=== PATIENT | male | born 1970 | race Two or more races ===

== ENCOUNTER → 2020-04-20 | Outpatient (CLI) | payer OTHER ==
[2020-04-20 12:03] LABS: Basophils # (auto) 0 10 ^3/uL (0-0.2); Basophils % (auto) 0.3 % (0.0-2.0); Eosinophils # (auto) 0.2 10 ^3/uL (0-0.8); Eosinophils % (auto) 4.1 % (0.0-7.0); Hematocrit 45.3 % (41.0-53.0); Hemoglobin 15.5 g/dL (13.5-17.5); Lymphocytes # (auto) 1.8 10 ^3/uL (0.4-5.4); Lymphocytes % (auto) 30.8 % (10.0-50.0); Mean Corpuscular Hemoglobin 30.1 pg (28.0-32.0); Mean Corpuscular Hgb Conc. 34.2 g/dL (32.0-36.0); Mean Corpuscular Volume 88.1 fL (80.0-100.0); Monocytes # (auto) 0.5 10 ^3/uL (0-1.3); Neutrophils # (auto) 3.4 10 ^3/uL (1.6-8.6); Neutrophils % (auto) 56.8 % (37.0-80.0); Nucleated Red Blood Cells % 0.1 %; Platelet Count (auto) 190 10^3/uL (140-450); Red Blood Cells 5.14 10^6/uL (4.5-5.90); Red Cell Distribution Width 13.1 % (11.8-14.3)
[2020-04-20 12:22] LABS: Potassium 3.7 mmol/L (3.5-5.1)
[2020-04-20 12:32] LABS: Albumin 3.8 g/dL (3.4-5.0); BUN/Creatinine Ratio 11.8; Bilirubin, Total 0.5 mg/dL (0.2-1.0); Calcium 9.3 mg/dL (8.5-10.1); Total Protein 7.3 g/dL (6.4-8.2)
== END | disposition home or self-care (01) ==
LOC: LAB 11:14
PROVIDERS: ATTEND Physician Assistant
DX: Z00.00 Encounter for general adult medical examination without abnormal findings (principal); I10 Essential (primary) hypertension; G47.00 Insomnia, unspecified
CPT/HCPCS: 36415; 80053; 80061; 85025

== ENCOUNTER → 2021-07-26 | Outpatient (CLI) | payer OTHER ==
[2021-07-26 10:42] LABS: Basophils # (auto) 0 10 ^3/uL (0-0.2); Basophils % (auto) 0.4 % (0.0-2.0); Eosinophils # (auto) 0.2 10 ^3/uL (0-0.8); Eosinophils % (auto) 3.7 % (0.0-7.0); Hematocrit 45.4 % (41.0-53.0); Hemoglobin 15.6 g/dL (13.5-17.5); Lymphocytes # (auto) 1.8 10 ^3/uL (0.4-5.4); Lymphocytes % (auto) 28.9 % (10.0-50.0); Mean Corpuscular Hemoglobin 29.8 pg (28.0-32.0); Mean Corpuscular Hgb Conc. 34.4 g/dL (32.0-36.0); Mean Corpuscular Volume 86.7 fL (80.0-100.0); Monocytes # (auto) 0.5 10 ^3/uL (0-1.3); Monocytes % (auto) 7.5 % (0.0-12.0); Neutrophils # (auto) 3.8 10 ^3/uL (1.6-8.6); Neutrophils % (auto) 59.5 % (37.0-80.0); Nucleated Red Blood Cells % 0.2 %; Red Blood Cells 5.23 10^6/uL (4.5-5.90); Red Cell Distribution Width 13.3 % (11.8-14.3); White Blood Cell 6.3 10^3/uL (4.4-10.8)
[2021-07-26 12:35] LABS: Potassium 4.1 mmol/L (3.5-5.1)
[2021-07-26 12:51] LABS: Albumin 4.2 g/dL (3.4-5.0); BUN/Creatinine Ratio 12.8; Bilirubin, Total 0.6 mg/dL (0.2-1.0); Calcium 9.5 mg/dL (8.5-10.1); Total Protein 7.9 g/dL (6.4-8.2)
== END | disposition home or self-care (01) ==
LOC: LAB 10:25
PROVIDERS: ATTEND Nurse Practitioner Family
DX: Z00.00 Encounter for general adult medical examination without abnormal findings (principal); R73.9 Hyperglycemia, unspecified; E78.1 Pure hyperglyceridemia; I10 Essential (primary) hypertension
CPT/HCPCS: 36415; 80053; 80061; 82043; 83036; 85025

== ENCOUNTER → 2024-04-15 | Outpatient (CLI) | payer OTHER ==
[2024-04-15 10:13] LABS: Urine Bacteria None Seen /hpf (None Seen)
[2024-04-15 11:07] LABS: Alanine Aminotransferase 48 U/L (7-40); Albumin 4.5 g/dL (3.2-4.8); Alkaline Phosphatase 107 U/L (46-116); Anion Gap 6 (5-15); Aspartate Aminotransferase 22 U/L (13-40); BUN/Creatinine Ratio 8.1 (10.0-20.0); Bilirubin, Total 0.4 mg/dL (0.2-1.0); Blood Urea Nitrogen 10 mg/dL (9-23); Calcium 9.7 mg/dL (8.7-10.4); Carbon Dioxide 28 mmol/L (20-31); Chloride 110 mmol/L (98-107); Cholesterol 137 mg/dL (< 200); Glucose 112 mg/dL (74-106); HDL Cholesterol 32 mg/dL (40-59); LDL Cholesterol 90 mg/dL (< 100); Potassium 4.1 mmol/L (3.5-5.1); Sodium 144 mmol/L (136-145); Total Protein 7.2 g/dL (5.7-8.2); Triglycerides 123 mg/dL (< 150)
[2024-04-15 11:21] LABS: Basophils # (auto) 0 10 ^3/uL (0-0.2); Basophils % (auto) 0.6 % (0.0-2.0); Eosinophils # (auto) 0.4 10 ^3/uL (0-0.8); Eosinophils % (auto) 6.6 % (0.0-7.0); Hematocrit 45.8 % (41.0-53.0); Hemoglobin 15.7 g/dL (13.5-17.5); Lymphocytes # (auto) 1.8 10 ^3/uL (0.4-5.4); Lymphocytes % (auto) 29.6 % (10.0-50.0); Mean Corpuscular Hemoglobin 30.5 pg (28.0-32.0); Mean Corpuscular Hgb Conc. 34.3 g/dL (32.0-36.0); Mean Corpuscular Volume 88.9 fL (80.0-100.0); Monocytes # (auto) 0.5 10 ^3/uL (0-1.3); Monocytes % (auto) 8.4 % (0.0-12.0); Neutrophils # (auto) 3.3 10 ^3/uL (1.6-8.6); Neutrophils % (auto) 54.8 % (37.0-80.0); Nucleated Red Blood Cells % 0.1 %; Platelet Count (auto) 188 10^3/uL (140-450); Red Blood Cells 5.15 10^6/uL (4.5-5.90); Red Cell Distribution Width 13.3 % (11.8-14.3)
[2024-04-15 12:02] LABS: Urine Blood 2+ /uL (Negative); Urine Clarity Clear (Clear); Urine Color Yellow (Yellow); Urine Mucus FEW (None Seen); Urine Protein, UAD TRACE (Negative); Urine Specific Gravity 1.028 (1.001-1.035); Urine Urobilinogen Normal (Negative); Urine WBC 1 /hpf (0 - 3)
[2024-04-15 12:25] LABS: Erythrocyte Sedimentation Rate 3 mm/hr (0-20)
== END | disposition home or self-care (01) ==
LOC: LAB 09:49
PROVIDERS: ATTEND Internal Medicine
DX: I10 Essential (primary) hypertension (principal); G62.9 Polyneuropathy, unspecified
CPT/HCPCS: 36415; 80053; 80061; 81001; 84439; 84443; 85025; 85652

== ENCOUNTER 2025-06-02 13:07 | Outpatient (CLI) | payer OTHER | END 2025-06-02 17:00 | disposition home or self-care (01) | LOC: LAB 13:07 | PROVIDERS: ATTEND Internal Medicine | DX: I10 Essential (primary) hypertension (principal); R35.1 Nocturia | CPT/HCPCS: 82270 ==

== ENCOUNTER 2025-06-09 10:58 | Outpatient (CLI) | payer OTHER ==
[2025-06-09 12:09] LABS: Hematocrit 45.5 % (41.0-53.0); Hemoglobin 16.1 g/dL (13.5-17.5); Mean Corpuscular Hemoglobin 30.5 pg (28.0-32.0); Mean Corpuscular Volume 86.1 fL (80.0-100.0); Nucleated Red Blood Cells % 0.2 %
[2025-06-09 12:25] LABS: Albumin 4.5 g/dL (3.2-4.8); Alkaline Phosphatase 103 U/L (46-116); Anion Gap 8 (5-15); BUN/Creatinine Ratio 9.9 (10.0-20.0); Bilirubin, Total 0.6 mg/dL (0.2-1.0); Blood Urea Nitrogen 12 mg/dL (9-23); Calcium 9.7 mg/dL (8.7-10.4); Carbon Dioxide 31 mmol/L (20-31); Chloride 105 mmol/L (98-107); Cholesterol 145 mg/dL (< 200); Glucose 96 mg/dL (74-106); Potassium 4.4 mmol/L (3.5-5.1); Sodium 144 mmol/L (136-145); Total Protein 7.8 g/dL (5.7-8.2)
[2025-06-09 12:26] LABS: Alanine Aminotransferase 45 U/L (7-40); HDL Cholesterol 34 mg/dL (40-59); Triglycerides 184 mg/dL (< 150)
[2025-06-09 13:03] LABS: Prostate Specific Antigen 0.58 ng/mL (0.0-4.0)
[2025-06-09 13:07] LABS: Free T4 (Free Thyroxine) 0.9 ng/dL (0.89-1.76)
[2025-06-09 13:14] LABS: Urine Protein, UAD Negative (Negative)
== END 2025-06-09 17:00 | disposition home or self-care (01) ==
LOC: LAB 10:58
PROVIDERS: ATTEND Internal Medicine
DX: I10 Essential (primary) hypertension (principal); R35.1 Nocturia
CPT/HCPCS: 36415; 80053; 80061; 81001; 84153; 84439; 84443; 85025; 85652